=== PATIENT | female | born 1990 | race African-American/Black ===

== ENCOUNTER 2020-10-08 21:52 | Emergency (ER) | payer SELFPAY ==
[~2020-10-08] VITALS: Ht 157.5 cm; Wt 73.0 kg
[2020-10-08 23:35] VITALS: BP 117/79
== END 2020-10-08 23:37 | disposition home or self-care (01) ==
LOC: ER 21:52
DX: R07.89 Other chest pain (principal); R06.02 Shortness of breath
CPT/HCPCS: 71045; 93005; 99283